=== PATIENT | female | born 1935 | race Caucasian/White ===

== ENCOUNTER → 2024-04-22 12:55 | Outpatient (CLI) | payer MEDICARE, SELFPAY ==
--- NOTE | 2024-04-22 | DI.MRI.S_ITS ---
PROCEDURE: MR LUMBAR SPINE WO CON INDICATIONS: LUMBAR STENOSIS TECHNIQUE: Noncontrast sagittal T1 spin echo and T2 fast echo, sagittal STIR, and T2 fast spin echo through the lumbar spine. In cases with scoliosis, additional coronal T2 fast spin echo may be performed. COMPARISON: Outside Facility, MR, MR LUMBAR SPINE WO CON, 12/08/2022, 8:47. FINDINGS: Image quality: Excellent. Alignment and Curvature: New L4-5 posterior fusion is present. Stable trace anterolisthesis of L2 on L3, L3 on L4. Bone Marrow: Marrow is of normal overall signal. Reactive endplate changes are most prominent at L2-3. No acute vertebral body compression fractures. Spinal Cord: Conus medullaris terminates at the L1 level. Visualized cord demonstrates normal signal and size. Paraspinous Soft Tissues: No paravertebral masses. Discs: Multilevel disc desiccation most severe at L2-3, L3-4. T12-L1: No disc bulge, spinal stenosis or foraminal narrowing. No interval change. L1-L2: No disc bulge, spinal stenosis or foraminal narrowing. No interval change. L2-L3: Mild disc bulge with moderate spinal stenosis. Moderate bilateral foraminal narrowing with facet and ligamentum flavum hypertrophy, slightly progressive. L3-L4: Mild disc bulge with severe spinal stenosis and canal compression, progressive compared to prior exam. Severe right and moderate left foraminal narrowing, progressive. Facet and ligamentum flavum hypertrophy are present. L4-L5: Posterior fusion changes. No spinal stenosis, improved compared to prior exam. Moderate right and minimal left foraminal narrowing improved compared to prior exam. L5-S1: Mild disc bulge with mild spinal stenosis. Mild bilateral foraminal narrowing with facet and ligamentum flavum hypertrophy. No interval change. IMPRESSION: L4-5 posterior fusion with improved appearance of previous spinal stenosis as well as foraminal narrowing. Mild progression of foraminal narrowing at multiple levels most notably at L3-4 as above. Dictated by: Tasha Roberts M.D. on 04/27/2024 at 17:28 Approved by: Tasha Roberts M.D. on 04/27/2024 at 17:32
== END ==
PROVIDERS: PCP Family Medicine; Referring Provider Orthopaedic Surgery Orthopaedic Surgery of the Spine; Visit Provider Orthopaedic Surgery Orthopaedic Surgery of the Spine
DX: M48.062 Spinal stenosis, lumbar region with neurogenic claudication (principal); M48.07 Spinal stenosis, lumbosacral region; M51.369 Other intervertebral disc degeneration, lumbar region without mention of lumbar back pain or lower extremity pain; M51.379 Other intervertebral disc degeneration, lumbosacral region without mention of lumbar back pain or lower extremity pain; M47.816 Spondylosis without myelopathy or radiculopathy, lumbar region; M47.817 Spondylosis without myelopathy or radiculopathy, lumbosacral region; Z98.1 Arthrodesis status
CPT/HCPCS: 72148

== ENCOUNTER → 2024-04-28 11:53 | Outpatient (CLI) | payer MEDICARE, SELFPAY ==
--- NOTE | 2024-04-28 11:58 | EKG_ITS ---
[place] [id number] [place] [id number] Test Date: 2024-04-28 Pat Name: Dara Lopez Department: [facility] Room: Gender: Female Configuration Management Administrator: JUAN C : 1935 Requested By: Order Number: [id number] Reading MD: Sincere Chávez MD Measurements Intervals [place] Rate: 85 P: 5 CO: 126 QRS: 15 QRSD: 80 T: 14 QT: 352 QTc: 418 Interpretive Statements Sinus rhythm with occasional premature ventricular complexes Electronically Signed On 04-28-2024 15:33:31 PDT by Sincere Chávez MD
[2024-04-28 12:30] LABS: Add Manual Diff / Slide Review NO; Basophils Absolute Auto 100 /uL (0-100); Eosinophils Absolute Auto 400 /uL (0-450); Eosinophils Percent Auto 4.9 % (2-4); Hematocrit 42.4 % (36-46); Hemoglobin 14.1 g/dL (12.0-16.0); Lymphocytes Absolute Auto 2100 /uL (1100-4500); Lymphocytes Percent Auto 25.8 % (25-40); Mean Corpuscular HGB Conc 33.2 % (30-36); Mean Corpuscular Hemoglobin 31.4 PG (26-34); Mean Corpuscular Volume 94.6 fL (80-100); Monocytes Absolute Auto 700 /uL (0-900); Monocytes Percent Auto 8.9 % (3-14); Neutrophils Absolute Auto 4900 /uL (1500-7000); Neutrophils Percent Auto 59.4 % (50-75); Platelet Count 349 X10^3/uL (150-400); Red Blood Cell Count 4.48 X10^6/uL (4.0-5.2); Red Cell Distribution Width 12.7 % (11.6-14.8); White Blood Cell Count 8.3 X10^3/uL (4.5-11.0)
[2024-04-28 12:52] LABS: BUN Creatinine Ratio 29.2 (6-22); Blood Urea Nitrogen 26 mg/dL (7-17); Calcium 10.2 mg/dL (8.4-10.2); Carbon Dioxide 26 mmol/L (22-32); Chloride 105 mmol/L (98-107); Estimated Glomerular Filt Rate > 60 mL/min (>60); Glucose 95 mg/dL (80-110); HEMOLYSIS < 15 (0-50); Potassium 4.7 mmol/L (3.4-5.1); Sodium 137 mmol/L (137-145)
== END ==
PROVIDERS: PCP Family Medicine; Referring Provider Orthopaedic Surgery Orthopaedic Surgery of the Spine; Visit Provider Orthopaedic Surgery Orthopaedic Surgery of the Spine
DX: Z01.818 Encounter for other preprocedural examination (principal); Z01.812 Encounter for preprocedural laboratory examination
CPT/HCPCS: 36415; 80048; 85025; 93005; 93010

== ENCOUNTER → 2024-04-30 11:13 | Outpatient (CLI) | payer MEDICARE, SELFPAY ==
--- NOTE | 2024-04-30 11:14 | DI.CT.S_ITS ---
PROCEDURE: CT LUMBAR SPINE WO CON INDICATIONS: SPINAL STENOSIS LUMBAR REGION TECHNIQUE: Noncontrast 3 mm thick sections acquired from the T12 level to the sacrum. Sagittal and coronal reformats were constructed. For radiation dose reduction, the following was used: automated exposure control. COMPARISON: [facility], CR, XR LUMBAR SPINE 2 OR 3 VIEWS, 04/21/2024, 10:02. [facility], MR, MR LUMBAR SPINE WO CON, 04/22/2024, 13:32. Outside Facility, MR, MR LUMBAR SPINE WO CON, 12/08/2022, 8:47. FINDINGS: Image quality: Excellent. Bones: 5 non rib-bearing lumbar vertebrae are present. There has been prior L4-L5 PLIF with intervertebral disc spacer placement, and without hardware complication. Diffuse osseous demineralization. The vertebral body heights are preserved. Hypertrophy of the L1-L3 spinous processes. Alignment: Levocurvature of the lumbar spine with the apex at L3. Grade 1 anterolisthesis of L2 on L3. Otherwise, the lumbar lordosis is preserved. Discs: Multilevel intervertebral disc height loss. Vacuum disc phenomenon at L3-L4. Disc height loss and endplate sclerosis with subchondral cyst formation at the L2-L3 level. Central canal: Although the epidural space is not well assessed on CT, there is at least moderate bony canal stenosis at L2-L3 and severe stenosis at L3-L4. Foramina: Mild left foraminal stenosis at the L2-L3 and L4-L5 levels. Moderate right foraminal stenosis at the L2-L3 and L4-L5 levels. Severe right foraminal stenosis at the L3-L4 level. Soft tissues: No retroperitoneal masses or hematomas. Visualized aorta is normal in caliber. Mild aortoiliac atherosclerosis. 1.7 centimeters simple cyst in the right hepatic lobe (4/1). Nonobstructive left calyceal nephrolithiasis, including a 0.5 centimeter calculus at the superior pole (4/21) and a 0.5 centimeter calculus at the inferior pole (4/36) IMPRESSION: 1. Status post L4-L5 PSIF with intervertebral disc spacer placement, without hardware complication. 2. Severe L3-L4 central canal stenosis. 3. Severe right L3-L4 foraminal stenosis. Dictated by: Gigi Jacques M.D. on 05/01/2024 at 9:32 Approved by: Gigi Jacques M.D. on 05/01/2024 at 9:53
== END ==
PROVIDERS: PCP Physician Assistant; Referring Provider Orthopaedic Surgery Orthopaedic Surgery of the Spine; Visit Provider Orthopaedic Surgery Orthopaedic Surgery of the Spine
DX: M48.062 Spinal stenosis, lumbar region with neurogenic claudication (principal); Z98.1 Arthrodesis status
CPT/HCPCS: 72131

== ENCOUNTER 2024-05-11 06:01 | Inpatient (IN) | payer MEDICARE, SELFPAY ==
[2024-05-05 12:41] VITALS: BMI 21.4
[2024-05-11] VITALS (15 sets, daily range): BP systolic 86–145; BP diastolic 58–86; PULSE 80–108; RESP 9–19; TEMP 36.4–36.8; O2SAT 94–99; BMI 21.4
[2024-05-11] MEDS: LACTATED RINGERS 1,000 ML 84 ML IV ×2 (07:01→09:55)
--- NOTE | 2024-05-11 07:41 | PM.PREOP ---
Pre-operative Note Interval Note History & Physical reviewed/Exam performed by Physician: Yes Changes to H&P: No
[2024-05-11] MEDS: CEFAZOLIN 2 GM/100 ML PREMIX 100 ML IV ×2 (08:15→17:22)
--- NOTE | 2024-05-11 08:25 | SUR.OPER ---
Prone on spine table, head in foam head support, padded chest and pelvic supports, gel pad at knees, lower legs supported by pillows; nipples, genitalia and toes free of pressure, arms secured on foam padded arm boards at <90 degrees abduction. Tape over blanket at thigh secured to table.
[2024-05-11] MEDS: BUPIVACAINE 0.25% (PF) 60 ML, EPINEPHrine 0.15 MG INJ (08:29)
[2024-05-11] MEDS: BUPIVACAINE LIPOSOME 266 MG/20 ML VIAL INJ (08:29)
--- NOTE | 2024-05-11 11:06 | DI.RAD.S_ITS ---
PROCEDURE: XR LUMBAR SPINE 2-3V INDICATIONS: L3-4 TLIF ROBOT TECHNIQUE: 3 intraoperative fluoroscopic views of the lumbar spine were acquired. COMPARISON: None. FINDINGS: Intraoperative fluoroscopic images of lower lumbar spine shows posterior fusion at L3-4 level with surgical hardware and intervertebral spacer placement. IMPRESSION: Fluoro guidance was provided intraoperatively for L3-4 TLIF performed by the ordering physician. Dictated by: Shun Hdz M.D. on 05/11/2024 at 11:20 Approved by: Shun Hdz M.D. on 05/11/2024 at 11:22
--- NOTE | 2024-05-11 11:12 | PM.OP.1 ---
Operative Date/Time/Diagnoses Date of procedure: 05/11/24 Time of procedure: 07:40 Pre-op diagnosis: 1. 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 L3-4 foraminal stenosis 3. History of L4-5 fusion with instrumentation Post-op diagnosis: same Procedure & Clinicians Procedure: 1. L3-4 posterolateral and posterior interbody fusion 2. L3-4 posterior interbody cage placement 3. L4-5 posterior non-segmental instrumentation removal 4. L4-5 revision laminectomy with exploration of fusion 5. L3-4 posterior non-segmental instrumentation with pedicle screw placement 6. L4-5 posterolatearl fusion 7. Olalla of bone marrow from iliac crest through a separate incision 8. Utilization of microsurgical technique and operating microscope 9. Utilization of robotic assisted navigation Same procedure as scheduled: Yes Indications: Patient has been having chronic back pain and worsening lumbar radiculopathy and symptoms of neurogenic claudication. Patient was found to have significant L3-4 spinal stenosis with history of L4-5 fusion correlating with her exam findings and symptoms. Patient failed multiple conservative management with worsening pain weakness and numbness in her lower extremity. Patient has been having difficulty performing activity of daily living. After discussing risks benefits of treatment options, patient elected proceed with surgery. Surgeon: Fidel Beckham Stud Driver: Nely Diez Operative Notes Closure Type: primary Specimen(s): none sent Prosthetic devices, grafts, tissues, transplants, or devices: Globus CREO MIS screws, Rise cage Applied: catheter Estimated Blood Loss (mL): 100 Blood products transfused: none Procedure in detail: Patient was seen in the preoperative area. Risks and benefits of the surgery was discussed with the patient. Informed consent was obtained from the patient and placed in the chart. Surgical site was marked. Patient was taken to the operative room. General anesthesia was administered. Prophylactic antibiotic was given to the patient less than 30 min before the incision was made. Patient was placed into a prone position on the Jayden table. Patient's back was then prepped and draped in the sterile fashion. Time-out was performed at this time. After patient was prepped and draped, patient's PSIS was palpated and marked bilaterally. Small 1 cm incision was made over the PSIS for placement of the reference probes. Two trocar was placed into the PSIS 1 on each side. The reference probe was attached to the trocar of the reference apparatus. At this time the C-arm imaging was used to confirm AP and lateral of L3, L4, L5 vertebrae and merged the C-arm imaging using the [employer] robotic navigation system with the CT of the lumbar spine. After successful merging was completed and confirmed, skin marker was used to vasile out the skin incision using the [employer] robotic arm. Bilateral incision was made at this time. Using patient's previous scar incision was made over the L3, L4, L5 interval on the right side. Fascia was incised in line with skin incision. Patient's previously placed hardware over the L4-5 level was identified by dissecting down to the level the hardware using a Bovie and a Conrad. The locking caps which was removed using hardware removal residential recycle driver. The locking robert was then removed from the tulips of the pedicle screws using a Deangelo. The pedicle screws were then removed using the screwdriver. Pre templated trajectory was used and guided using the [employer] robotic navigation system for left L3, L4 pedicle screws and right L3, L4 pedicle screws placement. This was done by using the robotic arm to guide the high-speed bur to make a cortical entry point. Next a drill was placed also using the robotic arm and guided using the navigation system drilling partially through bilateral L3, L4 pedicles. Next L3, L4 pedicle screws it was pre templated and measured was placed onto the power residential recycle driver and inserted into the pedicles bilaterally. After all 8 screws were placed C-arm imaging was taken of both AP and lateral to confirm the placement. Excellent placement of the screws were confirmed and a matched precisely with the pre planned screw placement using the navigation system. MARs retractor was inserted using [employer] guidence. Globus MARS retractors was placed inside the incision and docked onto the L3 lamina. Using microsurgical technique and operating microscope, a L3 laminectomy and L3-4 facetectomy was performed using a Kerrison rongeur. The laminectomy and facetectomy was performed in order to decompress patient's cauda equina as well as the nerve roots exiting at the L3-4 level. Patient was found have severe lateral recess and neural foramen stenosis which was fully decompressed after the laminectomy facetectomy. More than 75% of the facets were removed during the process of decompression rendering L3-4 level grossly unstable and required a fusion procedure at the same time. The disc space at L3-4 was identified, and a total diskectomy was performed at L3-4 level. The endplates were decorticated using a rasp and shaver. The total diskectomy and decortication was performed at L3-4 level in order to to accomplish a L3-4 fusion. The local bone from the laminectomy and facetectomy was saved for local bone grafting. After the total diskectomy and decortication was completed, Viacel bone graft material was combined with local bone that was harvested earlier. At this time, a separate skin is incision was made over the iliac crest. A Jamshidi needle was inserted into the iliac crest through a separate skin incision on the right. 5 cc of bone marrow aspiration was obtained through the separate skin incision using a Jamshidi needle from the iliac crest. The bone marrow aspiration was combined with local bone and the Viacel bone grafting material. The bone grafting material was placed into the L3-4 interbody space along with a expandable cage. The cages were expanded to its maximum height using the torque limiting screwdriver. The disc preparation as well as the cage insertion were also performed under navigation guidance. After the cage was placed, AP and lateral C-arm imaging was taken to confirm placement of the cage and excellent position was confirmed. The fusion mass on the right side of L4-5 was exposed by performing a right-sided hemilaminectomy at L4-5 level. The hemilaminectomy was performed using the Kerrison rongeur to undercut the lamina as well removing additional epidural scar tissue for purpose of decompressing the epidural space. Globus MARS retractor was inserted and docked onto the L3-4, L4-5 posterolateral gutter. Using the power drill, posterior-lateral decortication was performed at L3-4, L4-5 level until bleeding cortical bone was identified. The remaining bone grafting material was placed into the L3-4, L4-5 posterior lateral gutter he order to accomplish posterolateral fusion at the L3-4, L4-5 level. At this time the tulips were attached to the L3, L4 pedicle screw shanks. This was done in L3, L4 pedicles bilaterally. After measuring the length of the rods, they were inserted into the tulips of the pedicle screws and locked in place using locking caps and torque limiting screwdriver bilaterally. Total 4 caps and 2 titanium rods was used in order to complete the posterior instrumentation construct. After all the hardware was placed, and confirmed with AP and lateral C-arm imaging, the wound was then irrigated with sterile normal saline and packed with Ray-Jose gauze for 3 min to accomplish hemostasis. After the gauze was removed the deep fascia was closed with #1 Vicryl suture. The subcutaneous layer was closed with 2-0 Vicryl. The skin was closed with skin pascual. Patient tolerated the procedure well. There were no complications. Neuro monitoring system was used to monitor patient's neurologic status throughout entire procedure. There was no disturbance of the neural monitoring signals throughout the case. The Operation could not have been safely performed without compromising the technical result or length of the procedure, without the assistance of a skilled insurance legal assistant. The insurance legal assistant was medically necessary for proper positioning, retraction and manipulation of instruments, proper exposure, surgical preparation, and manipulation of tissue. Complications: none Post-operative Condition: stable Disposition: PACU Plan for aftercare: Admit to inpatient hospital
[2024-05-11] MEDS: OXYCODONE IR 5 MG TABLET PO ×3 (12:06→21:03)
[2024-05-11] MEDS: LACTATED RINGERS 1,000 ML 125 ML IV (14:27)
--- NOTE | 2024-05-11 14:38 | OT.IP.EVAL ---
Current Diagnoses Spinal stenosis, lumbar region with neurogenic claudication (05/11/24) Arthrodesis status (05/11/24) Surgery Performed Operation Date: 05/11/24 07:45 Actual Procedures p L3-4 TLIF with L3-5 PSF with instrumentation-Robot - Fidel Beckham MD Past Medical History (Last Updated 05/05/24 @ 12:40 by Cailin Rinaldi, RN) Arthritis Cataract Cervical spondylosis Depression Facet arthropathy, cervical GERD (gastroesophageal reflux disease) HLD (hyperlipidemia) Osteoporosis Spinal stenosis Surgical History (Last Updated 05/05/24 @ 13:28 by Cailin Rinaldi, RN) H/O mastectomy H/O: hysterectomy History of appendectomy History of Josephine fundoplication S/P lumbar fusion (01/2023) Occupational Therapy Inpatient Evaluation/Re-Eval M1 PT/OT-IP Prior Functional Status Start: 05/11/24 14:07 Freq: NEEDED Status: Active Protocol: Document 05/11/24 14:56 CGR (Rec: 05/11/24 15:06 CGR [id number]) Medical Review Prior Functional Status Medical History Reviewed Yes Diet/Fluid Consistency Regular Communication WNLs, [place] and has hearing aides Mobility and Gait I without AD, flexed posture per Activities of Daily Living and IADL's IND with bathing, dressing, driving. Social History Household Members spouse Living Arrangements House Number of Floors (Floors) One Floor Number of Stairs To Enter/Railing? 3 stairs with railing to enter . Railings on both sides and can reach one railing at a time. Home Environment High Toilet,Walk in Shower, Built-In Shower Seat Home Equipment Front Wheel Walker,Straight Cane,Cable Wirer Employment Status Retired Additional Social History Comment Flat bed and no rails and gets out to her left M2 OT-IP Current Condition Start: 05/11/24 14:56 Freq: Status: Active Protocol: Document 05/11/24 14:56 CGR (Rec: 05/11/24 15:06 CGR [id number]) Occupational Therapy Current Condition Current Condition Evaluation Date 05/11/24 Treatment Diagnosis L3-4 and L4-5 TLIF Diagnosis Onset Date 05/11/24 Post Operative Precautions Lumbar Precautions Log Roll,No Twisting,Limit Bending,Lifting Restriction of 10 lbs,Gait Belt above Incisional Area M3 OT- IP Subjective and Pain Start: 05/11/24 14:56 Freq: Status: Active Protocol: Document 05/11/24 14:56 CGR (Rec: 05/11/24 15:06 CGR [id number]) OT- Subjective Occupational Therapy Visit Type Type Initial Evaluation Visit Start Time 14:15 Visit Stop Time 14:38 Notes Partial co-treat with P.T. present throughout OT Pain Assessment Pain When Pain Assessed At Rest Pain Present Pain Present Pain Reported Location back Intensity 3 Scale Used Numeric (0 - 10) Management Techniques Apply Cold,Distraction, Modification of Treatment,Re- positioning M4 OT- IP ADL's Start: 05/11/24 14:56 Freq: Status: Active Protocol: Document 05/11/24 14:56 CGR (Rec: 05/11/24 15:06 CGR [id number]) OT [id number] Comments OT Self-Feeding Comments Not meal time OT ADL-Grooming Comments OT Grooming Comments Pt declined to perform OT ADL-Oral Care Comments Oral Care Comments Pt declined to perform OT ADL-Dressing General Eval Lower Body Dressing Ability Total Assistance Areas Needing Assistance Socks Comments OT Dressing Comments Discussed need for LB dressing equipment. Pt states that she knows how to use the healthcare administrator for LB dressing but not the sock aid OT ADL-Toileting General Evaluation Toileting Ability Total Assistance Comments OT Toileting Comments [place] OT ADL-Bathing Comments OT Bathing Comments not appropriate at this time M5 OT- IP IADL's Start: 05/11/24 14:56 Freq: Status: Active Protocol: Document 05/11/24 14:56 CGR (Rec: 05/11/24 15:06 CGR [id number]) OT-Instrumental Activities of Daily Living Deficits IADL Deficits Identified No Deficits Home Safety Awareness Awareness of Need for Assistance at Home Good Awareness Ability to Problem Solve Emergency Able to Problem Solve Situations Medication Management Medication Management No Deficits Identified Money Management Money Management No Deficits Identified Meal Preparation Meal Preparation No Deficits Identified K9 Handler K9 Handler No Deficits Identified Driving Driving Comments Pt's spouse can drive for her 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 M6 OT- IP Functional Cognition Start: 05/11/24 14:56 Freq: Status: Active Protocol: Document 05/11/24 14:56 CGR (Rec: 05/11/24 15:06 CGR [id number]) Cognitive Factors Limiting Selfcare Function Cognitive Ability Level of Alertness Alert Patient Orientation Name,Age,Birthday,Month,Date, Year,Day of Week,Place, Situation Attention Span Ability Capable of Focused Attention, Capable of Sustained Attention Ability to Follow Commands Able to Follow One Step Commands with Increased Time, Able to Follow One Step Commands with Repetition Cognitive Comments Cognitive Assessment Comments Pt states she is feeling a little fuzzy after the surgey . OT- Vision and Hearing OT- Hearing Assessment OT- Hearing Assessment Hearing Impaired,Use of Hearing Aids OT- Vision Assessment Visual Acuity Glasses All The Time Visual Attentiveness WFL Occular Pursuits WFL Visual Convergence WFL Vision Assessment Comments hx of cateract sx M7 OT- IP Mobility and Balance Start: 05/11/24 14:56 Freq: Status: Active Protocol: Document 05/11/24 14:56 CGR (Rec: 05/11/24 15:06 CGR [id number]) OT- Bed Mobility Assessment Rolling Type of Rolling Log Rolling,Roll to Right Level of Assistance Minimal Assistance Supine to Sit Supine to Sit Assist Minimal Assistance Sit to Supine Sit to Supine Assist Minimal Assistance Scooting Scooting to Edge of Bed Minimal Assistance OT-Transfer Assessment Sit to and From Stand Sit to and from Stand Minimal Assistance Transfers Transfer Ability Minimal Assistance Technique Transfer Destination Bed,Chair Transfer Technique Stand Step Pivot Devices Transfer Assistive Devices Gait Belt,Front Wheeled Walker Comments Mobility Comments Mobility over to the door with min a. OT- Balance Assessment Sitting Balance and Reactions Static Sitting Balance Ability Normal Dynamic Sitting Balance Ability Normal M8 OT- IP Objective Assessments Start: 05/11/24 14:56 Freq: Status: Active Protocol: Document 05/11/24 14:56 CGR (Rec: 05/11/24 15:06 CGR [id number]) OT Gross Range of Motion Upper Extremity Range of Motion Assessment Within Functional Limits OT Strength Upper Extremity Strength Assessment Within Functional Limits Comments Strength Comments arms and hands 4/5 OT- Coordination Assessment Upper Extremity Finger to Nose Test Within Functional Limits Finger Tapping Test Within Functional Limits OT-Muscle Tone Assessment Muscle Tone WNL Yes OT Sensation Assessment Edema Edema Absent M9 OT- IP Assessment and Plan Start: 05/11/24 14:56 Freq: Status: Active Protocol: Document 05/11/24 14:56 CGR (Rec: 05/11/24 15:06 CGR [id number]) OT Summary Assessment and Plan Potential Rehabilitation Potential Excellent Analytic Complexity at Evaluation Moderate Summary OT Impairments Pain,Balance,Functional Cognition,Functional Mobility, Grooming,Dressing,Toileting, Bathing,Toilet Transfers, Shower Transfers,Activity Tolerance Progress Towards Goals Progressing Toward Goals Assessment Summary Pt presents as a moderate complexity evaluation s/p admit for L3-4 and L4-5 TLIF. Pt is doing very well after sx and was able to mobilize with min a. Limited teaching on this date d/t pt feeling a little off cognitively. Pt will benefit from 1-2 OT session and is most appropriate for discharge home with husbands assist. Goals Grooming Goal Independent Dressing Goal Independent,Cable Wirer,Sock Aid Toileting Goal Independent Bathing Goal Independent Toilet Transfer Goal Independent Shower Transfer Goal Independent Patient/Caregiver Education Goal Demonstrate Post-Op Precautions Days to Meet Goals 2 Frequency of Treatment Other frequency 5x a week Treatment Plan OT Treatment Plan ADL Training,Functional Mobility,Patient/Family Education,Discharge Planning Other Treatment Recommendations and Next LB dressing training, pain Treatment Focus management, energy conservation, review back precautions. Discharge Recommendations OT Discharge Recommendations Home with Assistance Home Equipment Needs sock aid Transportation Needs at Discharge Private Vehicle
--- NOTE | 2024-05-11 14:43 | PT.IIE ---
Current Diagnoses Spinal stenosis, lumbar region with neurogenic claudication (05/11/24) Arthrodesis status (05/11/24) Surgery Performed Operation Date: 05/11/24 07:45 Actual Procedures p L3-4 TLIF with L3-5 PSF with instrumentation-Robot - Fidel Beckham MD Surgical History (Last Updated 05/05/24 @ 13:28 by Cailin Rinaldi, RN) H/O mastectomy H/O: hysterectomy History of appendectomy History of Josephine fundoplication S/P lumbar fusion (01/2023) Medical History (Last Updated 05/05/24 @ 12:40 by Cailin Rinaldi, RN) Arthritis Cataract Cervical spondylosis Depression Facet arthropathy, cervical GERD (gastroesophageal reflux disease) HLD (hyperlipidemia) Osteoporosis Spinal stenosis Physical Therapy Inpatient Evaluation/Re-Eval M1 PT/OT-IP Prior Functional Status Start: 05/11/24 14:07 Freq: NEEDED Status: Active Protocol: Document 05/11/24 14:07 MB (Rec: 05/11/24 14:43 MB [id number]) Medical Review Prior Functional Status Medical History Reviewed Yes Diet/Fluid Consistency Regular Communication WNLs, CHEESH-NA and has hearing aides Mobility and Gait I without AD, flexed posture per Activities of Daily Living and IADL's I bathing, dressing, driving Social History Household Members spouse Living Arrangements House Number of Floors (Floors) One Floor Number of Stairs To Enter/Railing? 3 stairs with railing to enter . Railings on both sides and can reach one railing at a time. Home Environment High Toilet,Walk in Shower, Built-In Shower Seat Home Equipment Front Wheel Walker,Straight Cane,Digital Camera Technician Employment Status Retired Additional Social History Comment Flat bed and no rails and gets out to her left M2 PT-IP Current Condition Start: 05/11/24 14:07 Freq: NEEDED Status: Active Protocol: Document 05/11/24 14:07 MB (Rec: 05/11/24 14:43 MB [id number]) Physical Therapy Current Condition Current Condition Evaluation Date 05/11/24 Treatment Diagnosis L3-5 fusion with removal of some previous hardware M3 PT-IP Subjective Start: 05/11/24 14:07 Freq: NEEDED Status: Active Protocol: Document 05/11/24 14:07 MB (Rec: 05/11/24 14:43 MB [id number]) Subjective Physical Therapy Visit Type Type Initial Evaluation Visit Start Time 14:07 Visit Stop Time 14:30 Number of CIGAR BRANDER Visits 0 Physical Therapy Visit Comments Patient Comments Pt is agreeable to PT Therapy Pain Assessment Pain When Pain Assessed At Rest Pain Present Pain Present Pain Reported Location back Intensity 3 Scale Used Numeric (0 - 10) M4 PT-IP Mobility and Gait Start: 05/11/24 14:07 Freq: NEEDED Status: Active Protocol: Document 05/11/24 14:07 MB (Rec: 05/11/24 14:43 MB [id number]) PT-Bed Mobility Assessment Rolling Type of Rolling Log Rolling,Roll to Right Level of Assist Minimal Assistance Supine to Sit Supine to Sit Minimal Assistance,1 Person Assistance,Bedrails Scooting Scooting to Edge of Bed Minimal Assistance Scooting Up and Down in Bed Minimal Assistance PT-Transfer Assessment Sit to and From Stand Sit to and from Stand Minimal Assistance,1 Person Assistance,Use of Upper Extremities Equipment Transfer Assistive Device Gait Belt,Front Wheeled Walker Orthotic/Prosthetic Devices or Brace: No Transfers Transfer Destination Chair Transfer Technique Stepping Transfer Ability Level of Assist Minimal Assistance,1 Person Assistance,Use of Upper Extremities Comments Mobility Comments Pt is barely min A for all activity but not quite CGA. Orthostatics are negative with BP and HR in RUE: supine 116/ 65, 103; standing 133/73, 108; standing after short gait to chair 132/71, 108 and pt is not light-headed. Slow and careful mobility today. Gait Assessment Gait Gait Assistance Required: Minimum Assistance,1 Person Assist Distance (Feet) 3 Able to Maintain Weight Bearing Status Yes During Gait Assistive Devices Assistive Device Gait Belt,Front Wheeled Walker Orthotic/Prosthetic Devices or Brace: No Gait Deviations General Gait Pattern Antalgic,Decreased Stride Length,Decreased Feet Clearance,Flexed Trunk,Step-to Gait Factors Limiting Gait Function Factors Limiting Gait Function Decreased Activity Tolerance, Difficulty Following Directions,Incoordination,Pain ,Poor Balance,Poor Safety Awareness PT-Balance Assessment Sitting Balance and Reactions Static Sitting Balance Ability Good Dynamic Sitting Balance Ability Good Standing Balance and Reactions Static Standing Balance Ability Good Dynamic Standing Balance Ability Fair Device Used RW M5 PT-IP Objective Assessments Start: 05/11/24 14:07 Freq: NEEDED Status: Active Protocol: Document 05/11/24 14:07 MB (Rec: 05/11/24 14:43 MB [id number]) Orientation Orientation/Cognition Level of Alertness Alert Orientation Name,Age,Birthday,Month,Date, Year,Day of Week,Place, Situation Language Function Ability Hard of Hearing Safety Awareness Decreased Safety Awareness Memory Description No Deficits Noted Gross Range of Motion Upper Extremity ROM Impairments Defer to OT Lower Extremity ROM Assessment Within Functional Limits Impairments Pt does not follow ROM and MMT cues well today and partially d/t hearing and some lethargy Strength Comments Strength Comments MMT deferred this date d/t above Coordination Assessment Gross Coordination Gross Coordination Impaired Sensation Assessment Comments Sensation Comments Pt denies paresthesias today but c/o sacral area pain with standing Muscle Tone Muscle Tone WNL Yes M6 PT-IP Treatment Start: 05/11/24 14:07 Freq: NEEDED Status: Active Protocol: Document 05/11/24 14:07 MB (Rec: 05/11/24 14:43 MB [id number]) Physical Therapy Treatment Education Education Provided Precautions,Post-Op Packet, Safety M7 PT-IP Assessment and Plan Start: 05/11/24 14:07 Freq: NEEDED Status: Active Protocol: Document 05/11/24 14:07 MB (Rec: 05/11/24 14:43 MB [id number]) PT Summary Assessment and Plan Potential Rehabilitation Potential Good Status of Condition at Evaluation Evolving Summary Impairments Pain,ROM,Strength,Balance, Coordination,Bed Mobility, Transfers,Gait,Activity Tolerance Progress Towards Goals Progressing Toward Goals Assessment Summary Pt is a pleasant 88 y/o female presenting with some pain same day post-op lumbar fusion with some previous hardware removal. She is not orthostatic and she is barely min A for mobility but more than CGA first time OOB to chair. She recalls 1/3 back precautions and log rolling from previous spinal surgery and re-ed on back precautions today. Progress gait and stair training next date. Goals Bed Mobility Goal Independent Transfer Goal Independent,Front Wheeled Walker Gait Goal Independent,Front Wheel Walker Gait Distance 100 Other Goals Pt will ascend and descend 3 steps with rail and no more than CGA to allow safe home entry. Days to Meet Goals 5 Frequency of Treatment Frequency Of Treatment Twice a Day Treatment Plan Physical Therapy Treatment Plan Bed Mobility Training,Transfer Training,Gait Training, Therapeutic Exercise,Balance Retraining,Post Op Education, Discharge Planning,Hot or Cold Pack,Neuromuscular Re-ed, Coordination Retraining,Manual Therapy Precautions Lumbar Precautions Log Roll,No Twisting,Limit Bending,Lifting Restriction of 10 lbs,Gait Belt above Incisional Area Other Precautions Reviewed log rolling technique Recommendations To Nursing Amount of Assist Needed 1 Person Assist Discharge Recommendations PT Discharge Recommendations Home with Assistance Transportation Needs at Discharge Private Vehicle
[2024-05-11] MEDS: ACETAMINOPHEN 325 MG TABLET 650 MG PO ×2 (15:17→21:03)
[2024-05-11] MEDS: SENNOSIDES 8.6 MG TABLET 17.2 MG PO (21:02)
[2024-05-11] MEDS: DOCUSATE 100 MG CAPSULE PO (21:02)
[2024-05-11] MEDS: ATORVASTATIN 20 MG TABLET 40 MG PO (21:02)
[2024-05-11] MEDS: PANTOPRAZOLE DR 40 MG TABLET PO (21:02)
[2024-05-11] MEDS: cloNIDine 0.1 MG TABLET PO (21:05)
[2024-05-12] MEDS: CEFAZOLIN 2 GM/100 ML PREMIX 100 ML IV (00:02)
[2024-05-12] MEDS: OXYCODONE IR 10 MG TABLET PO ×4 (04:33→18:18)
[2024-05-12] MEDS: ACETAMINOPHEN 325 MG TABLET 650 MG PO (04:33)
[2024-05-12 04:37] VITALS: BP 114/67; PULSE 90; RESP 20; TEMP 36.4; O2SAT 94
[2024-05-12] MEDS: SODIUM CHLORIDE 0.9% FLUSH 10 ML IV ×3 (04:53→20:26)
[2024-05-12 05:31] LABS: Hematocrit 32.8 % (36-46); Hemoglobin 10.8 g/dL (12.0-16.0)
--- NOTE | 2024-05-12 07:44 | PM.PNPO.1 ---
Subjective Subjective Date Patient Seen: 05/12/24 Time Patient Seen: 07:44 Interval history: Patient states pain is controlled with oral pain relievers. She has been able to work with physical therapy yesterday. No new numbness or tingling lower extremities. No episodes of nausea vomiting fever or chills. Exam Vital Signs (past 8 hours): - 05/12/24 04:37 Temperature 97.6 F Pulse Rate 90 Respiratory Rate 20 Blood Pressure 114/67 Pulse Oximetry 94 Oxygen Delivery Method Room Air Oxygen Flow Rate 0 Narrative Exam Narrative: 5/5 PF, DF, EHL on bilateral lower extremities. Sensation to light touch intact throughout BLE, calves soft and compressible. Dressing clean dry and intact. SCDs on and functioning. Urinary De Leon in place Resp Effort & Inspection: normal respiratory effort and able to speak in complete sentences Objective Labs 05/12/24 05:15 Labs: Laboratory Results - last 24 hr 05/12/24 05:15 Hgb 10.8 L Hct 32.8 L PFSH Medical History (Updated 05/05/24 @ 12:40 by Cailin Rinaldi RN) Cataract Spinal stenosis GERD (gastroesophageal reflux disease) Osteoporosis HLD (hyperlipidemia) Depression Arthritis Cervical spondylosis Facet arthropathy, cervical Surgical History (Updated 05/05/24 @ 13:28 by Cailin Rinaldi RN) History of Josephine fundoplication H/O mastectomy H/O: hysterectomy History of appendectomy S/P lumbar fusion (01/2023) Social History household members: spouse Smoking Status: Never smoker alcohol intake: current Assessment & Plan Post-op Postoperative Procedures: Procedures Operation Date: 05/11/24 07:45 Actual Procedure Side Surgeon p L3-4 TLIF with L3-5 PSF with instrumentation-Robot Fidel Beckham MD Postoperative day: 1 Postoperative status: doing well Postoperative plan: routine post-op care and ambulate Postoperative plan narrative: Patient is progressing well status post TLIF. Discontinue De Leon. Ambulate with physical therapy. If she progresses well re-evaluate in the afternoon for possible discharge. Multimodal pain control. SCDs on when in bed for DVT prevention. Plan to discharge later today or tomorrow pending PT. Quality VTE Deep Vein Thrombosis/Pulmonary Embolism Present on Admission: No
[2024-05-12] MEDS: DOCUSATE 100 MG CAPSULE PO ×2 (08:17→20:26)
[2024-05-12] MEDS: buPROPion XL 150 MG TAB PO (08:17)
[2024-05-12] MEDS: MULTIVITAMIN 1 TABLET 1 TAB PO (08:17)
[2024-05-12] MEDS: CHOLECALCIFEROL (VITAMIN D3) 5,000 UNIT TABLET 5000 UNIT PO (08:17)
[2024-05-12] MEDS: PANTOPRAZOLE DR 40 MG TABLET PO ×2 (08:17→20:25)
[2024-05-12] MEDS: CITALOPRAM 10 MG TABLET 60 MG PO (08:17)
[2024-05-12] MEDS: polyethylene glycoL 3350 17 GM POWD.PACK PO (08:17)
[2024-05-12 08:34] VITALS: BP 113/71; PULSE 67; RESP 16; TEMP 36.8; O2SAT 96
--- NOTE | 2024-05-12 09:00 | PT.IPTN ---
Current Diagnoses Spinal stenosis, lumbar region with neurogenic claudication (05/11/24) Arthrodesis status (05/11/24) Surgery Performed Operation Date: 05/11/24 07:45 Actual Procedures p L3-4 TLIF with L3-5 PSF with instrumentation-Robot - Fidel Beckham MD Physical Therapy Treatment Note M2 PT-IP Current Condition Start: 05/11/24 14:07 Freq: NEEDED Status: Active Protocol: Document 05/11/24 14:07 MB (Rec: 05/11/24 14:43 MB [id number]) Physical Therapy Current Condition Current Condition Evaluation Date 05/11/24 Treatment Diagnosis L3-5 fusion with removal of some previous hardware M3 PT-IP Subjective Start: 05/11/24 14:07 Freq: NEEDED Status: Active Protocol: Document 05/12/24 09:30 TS (Rec: 05/12/24 09:42 TS [id number]) Subjective Physical Therapy Visit Type Type Treatment Note Visit Start Time 09:00 Visit Stop Time 09:28 Number of SLITTING MACHINE OPERATOR Visits 1 Physical Therapy Visit Comments Patient Comments Pt found resting in bed, reports pain is 9/10 with mobility, little amounts of pain at rest. She is agreeable to PT. Therapy Pain Assessment Pain When Pain Assessed During Mobility Pain Present Pain Present Pain Reported Location back Intensity 9 Scale Used Numeric (0 - 10) M4 PT-IP Mobility and Gait Start: 05/11/24 14:07 Freq: NEEDED Status: Active Protocol: Document 05/12/24 09:30 TS (Rec: 05/12/24 09:42 TS [id number]) PT-Bed Mobility Assessment Rolling Type of Rolling Log Rolling,Roll to Right Level of Assist Standby Assistance Supine to Sit Supine to Sit Standby Assistance,Bedrails Scooting Scooting to Edge of Bed Standby Assistance PT-Transfer Assessment Sit to and From Stand Sit to and from Stand Contact Guard Assistance, Minimal Assistance Equipment Transfer Assistive Device Gait Belt,Front Wheeled Walker Orthotic/Prosthetic Devices or Brace: No Comments Mobility Comments Pt recalls 3/3 spinal precautions prior to mobility. Logroll to R side SBA, pt demonstrates carryover. Supine to sit SBA with BUE support. STS with FWW from bed CGA. She ambulates ~20' in the room SBA/CGA, denies any lightheadedness. pt sat in chair for break, agrees to perform stairs. STS from the chair Beatriz/CGA with use of FWW . She ambulates ~80'SBA with FWW to stairs. She performs stairs x3 with single rail and DOOR PULLER CGA with cues for sequencing. Pt ambulates back to the room, was left in the chair, all needs met. Gait Assessment Gait Gait Assistance Required: Standby Assistance,Contact Guard Assist,1 Person Assist Distance (Feet) 100 Assistive Devices Assistive Device Gait Belt,Front Wheeled Walker Orthotic/Prosthetic Devices or Brace: No Gait Deviations General Gait Pattern Antalgic,Decreased Stride Length,Decreased Feet Clearance,Flexed Trunk,Step-to Gait Factors Limiting Gait Function Factors Limiting Gait Function Decreased Activity Tolerance, Difficulty Following Directions,Incoordination,Pain ,Poor Balance,Poor Safety Awareness Stair Climbing Assessment Evaluation Level of Assist On Stairs Contact Guard Assistance,1 Person Assistance Devices Stair Climbing Assistive Devices Left Railing Technique/Endurance Stair Climbing Direction Ascend and Descend Stair Climbing Technique Step to Step Number of Steps Climbed 3 PT-Balance Assessment Sitting Balance and Reactions Static Sitting Balance Ability Good Dynamic Sitting Balance Ability Good Standing Balance and Reactions Static Standing Balance Ability Good Dynamic Standing Balance Ability Fair Device Used FWW M5 PT-IP Objective Assessments Start: 05/11/24 14:07 Freq: NEEDED Status: Active Protocol: Document 05/11/24 14:07 MB (Rec: 05/11/24 14:43 MB [id number]) Orientation Orientation/Cognition Level of Alertness Alert Orientation Name,Age,Birthday,Month,Date, Year,Day of Week,Place, Situation Language Function Ability Hard of Hearing Safety Awareness Decreased Safety Awareness Memory Description No Deficits Noted Gross Range of Motion Upper Extremity ROM Impairments Defer to OT Lower Extremity ROM Assessment Within Functional Limits Impairments Pt does not follow ROM and MMT cues well today and partially d/t hearing and some lethargy Strength Comments Strength Comments MMT deferred this date d/t above Coordination Assessment Gross Coordination Gross Coordination Impaired Sensation Assessment Comments Sensation Comments Pt denies paresthesias today but c/o sacral area pain with standing Muscle Tone Muscle Tone WNL Yes M6 PT-IP Treatment Start: 05/11/24 14:07 Freq: NEEDED Status: Active Protocol: Document 05/12/24 09:30 TS (Rec: 05/12/24 09:42 TS [id number]) Physical Therapy Treatment Education Education Provided Precautions,Post-Op Packet, Safety M7 PT-IP Assessment and Plan Start: 05/11/24 14:07 Freq: NEEDED Status: Active Protocol: Document 05/12/24 09:30 TS (Rec: 05/12/24 09:42 TS [id number]) PT Summary Assessment and Plan Potential Rehabilitation Potential Good Summary Impairments Pain,ROM,Strength,Balance, Coordination,Bed Mobility, Transfers,Gait,Activity Tolerance Progress Towards Goals Progressing Toward Goals Assessment Summary Dara is doing well with her mobility. She is SBA for all bed mobility and demonstrates good carryover of sequencing. She progressed her gait to ~ 100 SBA/CGA with FWW. She performed stairs x3 with single rail and DOOR PULLER. PT is recommending pt return home with assist. Goals Bed Mobility Goal Independent Transfer Goal Independent,Front Wheeled Walker Gait Goal Independent,Front Wheel Walker Gait Distance 100 Other Goals Pt will ascend and descend 3 steps with rail and no more than CGA to allow safe home entry. Days to Meet Goals 5 Frequency of Treatment Frequency Of Treatment Twice a Day Treatment Plan Physical Therapy Treatment Plan Bed Mobility Training,Transfer Training,Gait Training, Therapeutic Exercise,Balance Retraining,Post Op Education, Discharge Planning,Hot or Cold Pack,Neuromuscular Re-ed, Coordination Retraining,Manual Therapy Precautions Lumbar Precautions Log Roll,No Twisting,Limit Bending,Lifting Restriction of 10 lbs,Gait Belt above Incisional Area Other Precautions Reviewed log rolling technique Recommendations To Nursing Amount of Assist Needed 1 Person Assist Discharge Recommendations PT Discharge Recommendations Home with Assistance Transportation Needs at Discharge Private Vehicle
--- NOTE | 2024-05-12 10:48 | OT.IP.TRT ---
Current Diagnoses Spinal stenosis, lumbar region with neurogenic claudication (05/11/24) Arthrodesis status (05/11/24) Surgery Performed Operation Date: 05/11/24 07:45 Actual Procedures p L3-4 TLIF with L3-5 PSF with instrumentation-Robot - Fidel Beckham MD Occupational Therapy Treatment Note M2 OT-IP Current Condition Start: 05/11/24 14:56 Freq: Status: Active Protocol: Document 05/11/24 14:56 CGR (Rec: 05/11/24 15:06 CGR [id number]) Occupational Therapy Current Condition Current Condition Evaluation Date 05/11/24 Treatment Diagnosis L3-4 and L4-5 TLIF Diagnosis Onset Date 05/11/24 Post Operative Precautions Lumbar Precautions Log Roll,No Twisting,Limit Bending,Lifting Restriction of 10 lbs,Gait Belt above Incisional Area M3 OT- IP Subjective and Pain Start: 05/11/24 14:56 Freq: Status: Active Protocol: Document 05/12/24 11:17 [facility] (Rec: 05/12/24 11:25 [facility] [id number]) OT- Subjective Occupational Therapy Visit Type Type Treatment Note Visit Start Time 10:20 Visit Stop Time 10:48 Occupational Therapy Visit Comments Patient Comments Pt not having to use the bathroom but agreed to practice LB dressing needs. Patient/Caregiver Goals TO go home. OT Pain Assessment Pain When Pain Assessed During Mobility Pain Present Pain Present Pain Reported Location back Intensity 10 Scale Used Numeric (0 - 10) M4 OT- IP ADL's Start: 05/11/24 14:56 Freq: Status: Active Protocol: Document 05/12/24 11:17 [facility] (Rec: 05/12/24 11:25 [facility] [id number]) OT [id number] Comments OT Self-Feeding Comments Not meal time OT ADL-Grooming General Evaluation Grooming Ability Standby Assistance Areas Needing Assistance Retrieving/Set-up of Grooming Items OT ADL-Oral Care General Eval Oral Care Ability Standby Assistance Areas of Assistance Retrieving/Set-Up of Items Comments Oral Care Comments Pt educated to spit into a cup or hinge at her hips to best be able to follow her back precautions. OT ADL-Dressing Comments OT Dressing Comments Able to practice use of activities attendant and sock aid. Pt plans on getting a sock aid, longe handled shoe horn and brush OT ADL-Toileting Comments OT Toileting Comments Pt will benefit from a BSC at home. Spoke of use of wet ones and pads/brief at night. OT ADL-Bathing Comments OT Bathing Comments Pt states not wanting to try today due to her increased pain. M5 OT- IP IADL's Start: 05/11/24 14:56 Freq: Status: Active Protocol: Document 05/11/24 14:56 CGR (Rec: 05/11/24 15:06 CGR [id number]) OT-Instrumental Activities of Daily Living Deficits IADL Deficits Identified No Deficits Home Safety Awareness Awareness of Need for Assistance at Home Good Awareness Ability to Problem Solve Emergency Able to Problem Solve Situations Medication Management Medication Management No Deficits Identified Money Management Money Management No Deficits Identified Meal Preparation Meal Preparation No Deficits Identified Final Block Press Operator Final Block Press Operator No Deficits Identified Driving Driving Comments Pt's spouse can drive for her 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 M6 OT- IP Functional Cognition Start: 05/11/24 14:56 Freq: Status: Active Protocol: Document 05/12/24 11:17 [facility] (Rec: 05/12/24 11:25 [facility] [id number]) Cognitive Factors Limiting Selfcare Function Cognitive Comments Cognitive Assessment Comments Pt able to follow commands well. M7 OT- IP Mobility and Balance Start: 05/11/24 14:56 Freq: Status: Active Protocol: Document 05/12/24 11:17 [facility] (Rec: 05/12/24 11:25 [facility] [id number]) OT-Transfer Assessment Sit to and From Stand Sit to and from Stand Minimal Assistance,Moderate Assistance Transfers Transfer Ability Contact Guard Assistance Technique Transfer Destination Chair Transfer Technique Stand Step Pivot Devices Transfer Assistive Devices Gait Belt,Front Wheeled Walker Comments Mobility Comments JUAN/MODA to stand as and needing cues to activated her legs to stand as pt tends to buckle due to her pain. Once on her feet CGA with FWW. Pt very heavy use of her hands on the FWW to move. Pt states to sleep on another bed at home as her current bed is very high. OT- Balance Assessment Sitting Balance and Reactions Static Sitting Balance Ability Normal Dynamic Sitting Balance Ability Good Standing Balance and Reactions Static Standing Balance Ability Fair Dynamic Standing Balance Ability Fair M8 OT- IP Objective Assessments Start: 05/11/24 14:56 Freq: Status: Active Protocol: Document 05/11/24 14:56 CGR (Rec: 05/11/24 15:06 CGR [id number]) OT Gross Range of Motion Upper Extremity Range of Motion Assessment Within Functional Limits OT Strength Upper Extremity Strength Assessment Within Functional Limits Comments Strength Comments arms and hands 4/5 OT- Coordination Assessment Upper Extremity Finger to Nose Test Within Functional Limits Finger Tapping Test Within Functional Limits OT-Muscle Tone Assessment Muscle Tone WNL Yes OT Sensation Assessment Edema Edema Absent M9 OT- IP Assessment and Plan Start: 05/11/24 14:56 Freq: Status: Active Protocol: Document 05/12/24 11:17 [facility] (Rec: 05/12/24 11:25 [facility] [id number]) OT Summary Assessment and Plan Potential Rehabilitation Potential Excellent Analytic Complexity at Evaluation Moderate Summary OT Impairments Pain,Balance,Functional Cognition,Functional Mobility, Grooming,Dressing,Toileting, Bathing,Toilet Transfers, Shower Transfers,Activity Tolerance Progress Towards Goals Progressing Toward Goals,Slow Progress due to Pain Assessment Summary Pt having more pain today. Able to go over and practice LB dressing needs and how to incorporate her back precautions for ADL needs. Pt to go home with her when medically stable. Goals Dressing Goal Independent,Supervisor Press Room,Sock Aid Toileting Goal Independent Bathing Goal Independent Toilet Transfer Goal Independent Shower Transfer Goal Independent Patient/Caregiver Education Goal Demonstrate Post-Op Precautions Days to Meet Goals 5 Frequency of Treatment Other frequency 5x a week Treatment Plan OT Treatment Plan ADL Training,Functional Mobility,Patient/Family Education,Discharge Planning Other Treatment Recommendations and Next shower? Treatment Focus Discharge Recommendations OT Discharge Recommendations Home with / Assist Available Home Equipment Needs sock aid, long handled brush and shoe horn, BSC Transportation Needs at Discharge Private Vehicle
[2024-05-12 12:22] VITALS: BP 124/78; PULSE 97; RESP 19; TEMP 37.1; O2SAT 95
--- NOTE | 2024-05-12 13:45 | PT.IPTN ---
Current Diagnoses Spinal stenosis, lumbar region with neurogenic claudication (05/11/24) Arthrodesis status (05/11/24) Surgery Performed Operation Date: 05/11/24 07:45 Actual Procedures p L3-4 TLIF with L3-5 PSF with instrumentation-Robot - Fidel Beckham MD Physical Therapy Treatment Note M2 PT-IP Current Condition Start: 05/11/24 14:07 Freq: NEEDED Status: Active Protocol: Document 05/11/24 14:07 MB (Rec: 05/11/24 14:43 MB [id number]) Physical Therapy Current Condition Current Condition Evaluation Date 05/11/24 Treatment Diagnosis L3-5 fusion with removal of some previous hardware M3 PT-IP Subjective Start: 05/11/24 14:07 Freq: NEEDED Status: Active Protocol: Document 05/12/24 13:45 AB (Rec: 05/12/24 16:03 AB [id number]) Subjective Physical Therapy Visit Type Type Treatment Note Visit Start Time 13:45 Visit Stop Time 14:30 Number of JEWEL BLOCKER AND SAWYER Visits 0 Physical Therapy Visit Comments Patient Comments agreeable to do PT Therapy Pain Assessment Pain When Pain Assessed At Rest Pain Present Pain Present Pain Reported Location back Intensity 9 Scale Used Numeric (0 - 10) Pain Behaviors Facial Grimacing,Guarding, Holding Area,Restlessness Pain Management Techniques Apply Cold,Distraction, Modification of Treatment,Re- positioning,Timing of Activity with Medications M4 PT-IP Mobility and Gait Start: 05/11/24 14:07 Freq: NEEDED Status: Active Protocol: Document 05/12/24 13:45 AB (Rec: 05/12/24 16:03 AB [id number]) PT-Bed Mobility Assessment Rolling Type of Rolling Log Rolling Level of Assist Maximal Assistance Supine to Sit Supine to Sit Maximum Assistance,Bedrails Sit to Supine Sit to Supine Minimal Assistance,Bedrails PT-Transfer Assessment Sit to and From Stand Sit to and from Stand Moderate Assistance,1 Person Assistance,Use of Upper Extremities Equipment Transfer Assistive Device Gait Belt,Front Wheeled Walker Orthotic/Prosthetic Devices or Brace: No Comments Mobility Comments pt supine in bed. spouse in room. c/o increase back pain stated that it is more like grabbing pain/spasm. informed nurse. pt agreed to do PT. reviewed back precautions with pt and spouse. pt completed log roll bed mobility max A and max cues. educated spouse on how to assist pt. pt was able to sit on EOB CGA. c/o increase back pain. caregiver training initiated. educated spouse on how to use safety belt. spouse able to put safety belt on pt . pt completed sit to stand from EOB mod A and cues. ambulated ~ 25 ft in room using FWW mod A and cues. requested to go back to bed and with c/o increase back pain. refused to do stairs. completed sit to supine min A and cues. positioned pt in bed. call light and table placed within reach. spouse agreed to do more training tomorrow. set up at 9 am. Gait Assessment Gait Gait Assistance Required: Moderate Assistance Distance (Feet) 25 Able to Maintain Weight Bearing Status Yes During Gait Assistive Devices Assistive Device Gait Belt,Front Wheeled Walker Gait Deviations General Gait Pattern Ataxic,Decreased Stride Length ,Decreased Feet Clearance,Step -to Gait Factors Limiting Gait Function Factors Limiting Gait Function Decreased Activity Tolerance, Decreased Strength,Difficulty Following Directions,Limited Range of Motion,Pain,Poor Balance,Poor Safety Awareness M5 PT-IP Objective Assessments Start: 05/11/24 14:07 Freq: NEEDED Status: Active Protocol: Document 05/11/24 14:07 MB (Rec: 05/11/24 14:43 MB [id number]) Orientation Orientation/Cognition Level of Alertness Alert Orientation Name,Age,Birthday,Month,Date, Year,Day of Week,Place, Situation Language Function Ability Hard of Hearing Safety Awareness Decreased Safety Awareness Memory Description No Deficits Noted Gross Range of Motion Upper Extremity ROM Impairments Defer to OT Lower Extremity ROM Assessment Within Functional Limits Impairments Pt does not follow ROM and MMT cues well today and partially d/t hearing and some lethargy Strength Comments Strength Comments MMT deferred this date d/t above Coordination Assessment Gross Coordination Gross Coordination Impaired Sensation Assessment Comments Sensation Comments Pt denies paresthesias today but c/o sacral area pain with standing Muscle Tone Muscle Tone WNL Yes M6 PT-IP Treatment Start: 05/11/24 14:07 Freq: NEEDED Status: Active Protocol: Document 05/12/24 13:45 AB (Rec: 05/12/24 16:03 AB [id number]) Physical Therapy Treatment Education Education Provided Precautions,Safety M7 PT-IP Assessment and Plan Start: 05/11/24 14:07 Freq: NEEDED Status: Active Protocol: Document 05/12/24 13:45 AB (Rec: 05/12/24 16:03 AB [id number]) PT Summary Assessment and Plan Potential Rehabilitation Potential Fair Summary Impairments Pain,ROM,Strength,Balance, Coordination,Sensation,Tone, Cognition,Bed Mobility, Transfers,Gait,Activity Tolerance Progress Towards Goals Slow Progress due to Pain,Slow Progress due to Activity Tolerance Assessment Summary caregiver training conducted but will require further training. pt was not able to tolerate much activity this afternoon to complete caregiver training due to c/o increase back pain. caregiver training set up at ~ 9 am tomorrow. will continue to assess progress. Goals Bed Mobility Goal Independent Transfer Goal Independent,Front Wheeled Walker Gait Goal Independent,Front Wheel Walker Gait Distance 100 Other Goals Pt will ascend and descend 3 steps with L rail and no more than CGA to allow safe home entry. Days to Meet Goals 5 Frequency of Treatment Frequency Of Treatment Twice a Day Treatment Plan Physical Therapy Treatment Plan Bed Mobility Training,Transfer Training,Gait Training, Therapeutic Exercise,Balance Retraining,Post Op Education, Discharge Planning,Hot or Cold Pack,Neuromuscular Re-ed, Coordination Retraining,Manual Therapy Other Recommendations and Next Treatment Caregiver trainin/23 @ 9 Focus am Precautions Lumbar Precautions Log Roll,No Twisting,Limit Bending,Lifting Restriction of 10 lbs,Gait Belt above Incisional Area Recommendations To Nursing Amount of Assist Needed 1 Person Assist Discharge Recommendations PT Discharge Recommendations Home with Assistance Transportation Needs at Discharge Private Vehicle
[2024-05-12] MEDS: CYCLOBENZAPRINE 10 MG TABLET 5 MG PO (14:34)
--- NOTE | 2024-05-12 16:02 | CM.DANOTE ---
Initial DCP Assessment Note Pt is a 88 yo female, resident of [place], now POD#1 [address] spinal surgery by Dr Beckham PCP: SHIRIN Rubio Payer: MCR/[employer] Reviewed chart, met w/patient and spouse, introduced self and role. Patient lives independently with spouse and plans to return home with assist from spouse. Patient denies needs from this PAYMENT PROCESSOR, says she is hopeful the pain subsides a bit before her return home. No barriers identified at this time to patient's safe discharge home w/family to assist; close outpatient f/u recommended. CM team will plan to follow clinical course closely in case any DC needs or concerns arise. SOURAV Culver Discharge Planning/Care Management CM Discharge Assessment Start: 05/12/24 15:59 Freq: Status: Active Protocol: Document 05/12/24 16:00 SANDRO (Rec: 05/12/24 16:02 SANDRO [id number]) Discharge Planning Assessment Assigned Accounts Manager SOURAV Bower DPOA/Assigned Designee Name Gibson Lopez, spouse Contact Information [phone] Advance Directives? Yes Advance Directives on File No History Provided By Patient,Significant Other, Medical Record Prior Living Arrangements House Household Members spouse Type of transporation used prior to Drives own vehicle admit Independent with ADL's Yes Is patient alert and oriented? Yes Barriers to Discharge No Discharge Plan Home Transportation Arrangement Spouse Referrals Initiated None needed
[2024-05-12 20:25] VITALS: BP 132/74; PULSE 103
[2024-05-12] MEDS: cloNIDine 0.1 MG TABLET PO (20:25)
[2024-05-12] MEDS: SENNOSIDES 8.6 MG TABLET 17.2 MG PO (20:25)
[2024-05-12] MEDS: ZOLPIDEM 5 MG TABLET 10 MG PO (20:25)
[2024-05-12] MEDS: ATORVASTATIN 20 MG TABLET 40 MG PO (20:25)
[2024-05-12 20:35] VITALS: BP 132/74; PULSE 103; RESP 16; TEMP 36.7; O2SAT 90
[2024-05-13 01:34] VITALS: O2SAT 95
--- NOTE | 2024-05-13 06:44 | PM.PNPO.1 ---
Subjective Subjective Date Patient Seen: 05/13/24 Time Patient Seen: 06:44 Interval history: Dara very much wants to go home w/ her family, but she is having significant pain control issues. Per her MAR, she had 40mg of oxycodone yesterday and was started on cyclobenzaprine 5mg. Despite this, she continues to c/o severe LBP as well as occasional shooting leg pain. Exam Vital Signs (past 8 hours): - 05/13/24 01:34 05/13/24 01:40 Pulse Oximetry 95 Oxygen Delivery Method Nasal Cannula Oxygen Flow Rate 1 1 Fraction of Inspired Oxygen 24 Fraction of Inspired Oxygen 24 Oxygen Delivery Method Nasal Cannula Oxygen Flow Rate 1 Narrative Exam Narrative: 5/5 strength in hip flexors, quadriceps, hamstrings, DF, PF, EHL bilaterally. Sensation to light touch intact throughout BLE, calves soft and compressible. Pt is unable to move enough for me to evaluate her dressings. Objective Labs 05/12/24 05:15 PFS Medical History (Updated 05/05/24 @ 12:40 by Cailin Rinaldi RN) Cataract Spinal stenosis GERD (gastroesophageal reflux disease) Osteoporosis HLD (hyperlipidemia) Depression Arthritis Cervical spondylosis Facet arthropathy, cervical Surgical History (Updated 05/13/24 @ 07:14 by Nely Diez PA-C) History of Josephine fundoplication H/O mastectomy H/O: hysterectomy History of appendectomy S/P lumbar fusion (01/2023) Social History household members: spouse Smoking Status: Never smoker alcohol intake: current Assessment & Plan Post-op Assessment and plan (1) S/P lumbar fusion: Assessment and Plan narrative: 1) Will add dexametasone to help w/ pain control. If this is effective, she can be d/c'd w/ a medrol eduard. 2) Continue PT. 3) Continue SCDs for mechanical VTE prophylaxis. 4) Possible d/c home today w/ family if better pain control. Postoperative Procedures: Procedures Operation Date: 05/11/24 07:45 Actual Procedure Side Surgeon p L3-4 TLIF with L3-5 PSF with instrumentation-Robot Fidel Beckham MD Postoperative day: 2 Quality VTE Deep Vein Thrombosis/Pulmonary Embolism Present on Admission: No
[2024-05-13 08:00] VITALS: BP 120/60; PULSE 92; RESP 18; TEMP 37.1; O2SAT 95
[2024-05-13] MEDS: OXYCODONE IR 10 MG TABLET PO (08:18)
[2024-05-13] MEDS: CYCLOBENZAPRINE 10 MG TABLET 5 MG PO ×2 (08:18→16:22)
[2024-05-13] MEDS: CHOLECALCIFEROL (VITAMIN D3) 5,000 UNIT TABLET 5000 UNIT PO (08:19)
[2024-05-13] MEDS: CITALOPRAM 10 MG TABLET 60 MG PO (08:20)
[2024-05-13] MEDS: DOCUSATE 100 MG CAPSULE PO ×2 (08:20→21:25)
[2024-05-13] MEDS: MULTIVITAMIN 1 TABLET 1 TAB PO (08:20)
[2024-05-13] MEDS: PANTOPRAZOLE DR 40 MG TABLET PO ×2 (08:20→21:26)
[2024-05-13] MEDS: DEXAMETHASONE 4 MG/ML VIAL IV (08:20)
[2024-05-13] MEDS: buPROPion XL 150 MG TAB PO (08:20)
[2024-05-13] MEDS: CALCIUM CARBONATE 500 MG TAB PO (08:20)
[2024-05-13] MEDS: SODIUM CHLORIDE 0.9% FLUSH 10 ML IV (08:21)
--- NOTE | 2024-05-13 09:00 | PT.IPTN ---
Current Diagnoses Spinal stenosis, lumbar region with neurogenic claudication (05/11/24) Arthrodesis status (05/11/24) Surgery Performed Operation Date: 05/11/24 07:45 Actual Procedures p L3-4 TLIF with L3-5 PSF with instrumentation-Robot - Fidel Beckham MD Physical Therapy Treatment Note M2 PT-IP Current Condition Start: 05/11/24 14:07 Freq: NEEDED Status: Active Protocol: Document 05/11/24 14:07 MB (Rec: 05/11/24 14:43 MB [id number]) Physical Therapy Current Condition Current Condition Evaluation Date 05/11/24 Treatment Diagnosis L3-5 fusion with removal of some previous hardware M3 PT-IP Subjective Start: 05/11/24 14:07 Freq: NEEDED Status: Active Protocol: Document 05/13/24 09:39 TS (Rec: 05/13/24 09:54 TS [id number]) Subjective Physical Therapy Visit Type Type Treatment Note Visit Start Time 09:00 Visit Stop Time 09:35 Number of ASBESTOS BRAKE LINING FINISHER Visits 1 Physical Therapy Visit Comments Patient Comments Pt found resting in bed, reports high pain last night and she didn't have pain meds for a long time. She has some difficulty following instructions and does not seem clear this morning, perhaps due to pain meds. She states she thought she had a stroke this morning, says she doesn't feel like herself, RN was notified. Therapy Pain Assessment Pain When Pain Assessed During Mobility Pain Present Pain Present Pain Reported M4 PT-IP Mobility and Gait Start: 05/11/24 14:07 Freq: NEEDED Status: Active Protocol: Document 05/13/24 09:39 TS (Rec: 05/13/24 09:54 TS [id number]) PT-Bed Mobility Assessment Rolling Type of Rolling Log Rolling Level of Assist Moderate Assistance,1 Person Assistance Supine to Sit Supine to Sit Minimal Assistance,1 Person Assistance,Bedrails Sit to Supine Sit to Supine Moderate Assistance,1 Person Assistance PT-Transfer Assessment Sit to and From Stand Sit to and from Stand Minimal Assistance,1 Person Assistance,Use of Upper Extremities Equipment Transfer Assistive Device Gait Belt,Front Wheeled Walker Orthotic/Prosthetic Devices or Brace: No Comments Mobility Comments Pt recalls 3/3 spinal precautions, requires extra time. Logroll to R side ModA with max cues for sequencing. Supine to sit Beatriz for uprighting trunk, pt requries cues for sequencing. Spouse applies gait belt prior to STS . STS with FWW Beatriz. She ambulates in the hallway ~100 SBA/CGA/Beatriz, pt tends to drift to R side and requires cues to avoid white/objects. She performs stairs Beatriz form spouse with use of single rail and BLACK TOPPER. She ambulates back to the room. Sit to supine into bed ModA and max cues for logroll technique. Pt was left in bed, all needs met. Gait Assessment Gait Gait Assistance Required: Standby Assistance,Contact Guard Assist,Minimum Assistance Distance (Feet) 100 Able to Maintain Weight Bearing Status Yes During Gait Assistive Devices Assistive Device Gait Belt,Front Wheeled Walker Gait Deviations General Gait Pattern Ataxic,Decreased Stride Length ,Decreased Feet Clearance,Step -to Gait Factors Limiting Gait Function Factors Limiting Gait Function Decreased Activity Tolerance, Decreased Strength,Difficulty Following Directions,Limited Range of Motion,Pain,Poor Balance,Poor Safety Awareness Stair Climbing Assessment Evaluation Level of Assist On Stairs Minimal Assistance,1 Person Assistance Devices Stair Climbing Assistive Devices Left Railing Technique/Endurance Stair Climbing Direction Ascend and Descend Stair Climbing Technique Step to Step Number of Steps Climbed 3 PT-Balance Assessment Sitting Balance and Reactions Static Sitting Balance Ability Normal Dynamic Sitting Balance Ability Good Standing Balance and Reactions Static Standing Balance Ability Fair Dynamic Standing Balance Ability Fair Device Used FWW M5 PT-IP Objective Assessments Start: 05/11/24 14:07 Freq: NEEDED Status: Active Protocol: Document 05/11/24 14:07 MB (Rec: 05/11/24 14:43 MB [id number]) Orientation Orientation/Cognition Level of Alertness Alert Orientation Name,Age,Birthday,Month,Date, Year,Day of Week,Place, Situation Language Function Ability Hard of Hearing Safety Awareness Decreased Safety Awareness Memory Description No Deficits Noted Gross Range of Motion Upper Extremity ROM Impairments Defer to OT Lower Extremity ROM Assessment Within Functional Limits Impairments Pt does not follow ROM and MMT cues well today and partially d/t hearing and some lethargy Strength Comments Strength Comments MMT deferred this date d/t above Coordination Assessment Gross Coordination Gross Coordination Impaired Sensation Assessment Comments Sensation Comments Pt denies paresthesias today but c/o sacral area pain with standing Muscle Tone Muscle Tone WNL Yes M6 PT-IP Treatment Start: 05/11/24 14:07 Freq: NEEDED Status: Active Protocol: Document 05/13/24 09:39 TS (Rec: 05/13/24 09:54 TS [id number]) Physical Therapy Treatment Education Education Provided Precautions,Safety M7 PT-IP Assessment and Plan Start: 05/11/24 14:07 Freq: NEEDED Status: Active Protocol: Document 05/13/24 09:39 TS (Rec: 05/13/24 09:54 TS [id number]) PT Summary Assessment and Plan Potential Rehabilitation Potential Fair Summary Impairments Pain,ROM,Strength,Balance, Coordination,Sensation,Tone, Cognition,Bed Mobility, Transfers,Gait,Activity Tolerance Progress Towards Goals Slow Progress due to Pain,Slow Progress - Other Assessment Summary Dara is progressing with her mobility this session but is limited by pain and some slight confusion. Pt is requiring increased cues this session and has poor carryover from the day before. Spoke with nursing and pain meds perhaps are playing a role in this. She is requiring increased assist for bed mobility and increasedcues. She continues to ambulate 100' , she tends to drift into white and obj on R side, pt denies any issues with vision. She performs stairs x3 with single rail and BLACK TOPPER from spouse. Schuyler was instructed in bed mobility, STS, donnning of gait belt, gait and stairs . PT is recommending home with assist. Could benefit from HHPT. Goals Bed Mobility Goal Independent Transfer Goal Independent,Front Wheeled Walker Gait Goal Independent,Front Wheel Walker Gait Distance 100 Other Goals Pt will ascend and descend 3 steps with L rail and no more than CGA to allow safe home entry. Days to Meet Goals 5 Frequency of Treatment Frequency Of Treatment Twice a Day Treatment Plan Physical Therapy Treatment Plan Bed Mobility Training,Transfer Training,Gait Training, Therapeutic Exercise,Balance Retraining,Post Op Education, Discharge Planning,Hot or Cold Pack,Neuromuscular Re-ed, Coordination Retraining,Manual Therapy Precautions Lumbar Precautions Log Roll,No Twisting,Limit Bending,Lifting Restriction of 10 lbs,Gait Belt above Incisional Area Other Precautions Reviewed log rolling technique Recommendations To Nursing Amount of Assist Needed 1 Person Assist Discharge Recommendations PT Discharge Recommendations Home with Assistance,Home Health Transportation Needs at Discharge Private Vehicle
[2024-05-13] MEDS: OXYCODONE IR 5 MG TABLET PO ×4 (11:15→21:25)
[2024-05-13] MEDS: polyethylene glycoL 3350 17 GM POWD.PACK PO (11:17)
--- NOTE | 2024-05-13 11:28 | OT.IP.TRT ---
Current Diagnoses Spinal stenosis, lumbar region with neurogenic claudication (05/11/24) Arthrodesis status (05/11/24) Surgery Performed Operation Date: 05/11/24 07:45 Actual Procedures p L3-4 TLIF with L3-5 PSF with instrumentation-Robot - Fidel Beckham MD Occupational Therapy Treatment Note M2 OT-IP Current Condition Start: 05/11/24 14:56 Freq: Status: Active Protocol: Document 05/11/24 14:56 CGR (Rec: 05/11/24 15:06 CGR [id number]) Occupational Therapy Current Condition Current Condition Evaluation Date 05/11/24 Treatment Diagnosis L3-4 and L4-5 TLIF Diagnosis Onset Date 05/11/24 Post Operative Precautions Lumbar Precautions Log Roll,No Twisting,Limit Bending,Lifting Restriction of 10 lbs,Gait Belt above Incisional Area M3 OT- IP Subjective and Pain Start: 05/11/24 14:56 Freq: Status: Active Protocol: Document 05/13/24 11:30 [facility] (Rec: 05/13/24 11:36 [facility] [id number]) OT- Subjective Occupational Therapy Visit Type Type Treatment Note Visit Start Time 11:10 Visit Stop Time 11:28 Occupational Therapy Visit Comments Patient Comments Pt wanting to get up to brush her teeth. Pt feel that she is not thinking well. Patient/Caregiver Goals TO go home. OT Pain Assessment Pain When Pain Assessed At Rest Pain Present Pain Present Denied Pain M4 OT- IP ADL's Start: 05/11/24 14:56 Freq: Status: Active Protocol: Document 05/13/24 11:30 CCC (Rec: 05/13/24 11:36 [facility] [id number]) OT ADL-Oral Care General Eval Oral Care Ability Independent Comments Oral Care Comments Able to follow the back precautions while standing with the FWW by the sink. OT ADL-Dressing Comments OT Dressing Comments Spoke again of getting LB dressing equipment and that a hip kits may be more cost effective versus buying individual pieces. OT ADL-Bathing Comments OT Bathing Comments Pt not wanting to shower at this time. M5 OT- IP IADL's Start: 05/11/24 14:56 Freq: Status: Active Protocol: Document 05/11/24 14:56 CGR (Rec: 05/11/24 15:06 CGR [id number]) OT-Instrumental Activities of Daily Living Deficits IADL Deficits Identified No Deficits Home Safety Awareness Awareness of Need for Assistance at Home Good Awareness Ability to Problem Solve Emergency Able to Problem Solve Situations Medication Management Medication Management No Deficits Identified Money Management Money Management No Deficits Identified Meal Preparation Meal Preparation No Deficits Identified Offset Press Assistant Offset Press Assistant No Deficits Identified Driving Driving Comments Pt's spouse can drive for 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 M6 OT- IP Functional Cognition Start: 05/11/24 14:56 Freq: Status: Active Protocol: Document 05/13/24 11:30 [facility] (Rec: 05/13/24 11:36 [facility] [id number]) Cognitive Factors Limiting Selfcare Function Cognitive Ability Safety Awareness Decreased Ability to Apply Precautions Cognitive Comments Cognitive Assessment Comments Pt a bit groggy and needing increased time to states her back precautions and needing cues to follow for log rolling . M7 OT- IP Mobility and Balance Start: 05/11/24 14:56 Freq: Status: Active Protocol: Document 05/13/24 11:30 [facility] (Rec: 05/13/24 11:36 [facility] [id number]) OT- Bed Mobility Assessment Supine to Sit Supine to Sit Assist Contact Guard Assistance Sit to Supine Sit to Supine Assist Minimal Assistance OT-Transfer Assessment Sit to and From Stand Sit to and from Stand Contact Guard Assistance Transfers Transfer Ability Contact Guard Assistance Technique Transfer Destination Bed Transfer Technique Stand Step Pivot Devices Transfer Assistive Devices Gait Belt,Front Wheeled Walker Comments Mobility Comments Better today with mobility needs. OT- Balance Assessment Sitting Balance and Reactions Static Sitting Balance Ability Normal Dynamic Sitting Balance Ability Good Standing Balance and Reactions Static Standing Balance Ability Good Dynamic Standing Balance Ability Good M8 OT- IP Objective Assessments Start: 05/11/24 14:56 Freq: Status: Active Protocol: Document 05/11/24 14:56 CGR (Rec: 05/11/24 15:06 CGR [id number]) OT Gross Range of Motion Upper Extremity Range of Motion Assessment Within Functional Limits OT Strength Upper Extremity Strength Assessment Within Functional Limits Comments Strength Comments arms and hands 4/5 OT- Coordination Assessment Upper Extremity Finger to Nose Test Within Functional Limits Finger Tapping Test Within Functional Limits OT-Muscle Tone Assessment Muscle Tone WNL Yes OT Sensation Assessment Edema Edema Absent M9 OT- IP Assessment and Plan Start: 05/11/24 14:56 Freq: Status: Active Protocol: Document 05/13/24 11:30 [facility] (Rec: 05/13/24 11:36 [facility] [id number]) OT Summary Assessment and Plan Potential Rehabilitation Potential Excellent Analytic Complexity at Evaluation Moderate Summary Progress Towards Goals Progressing Toward Goals Assessment Summary Pt doing much better today however a bit groggy. Pt to go home with her to assist when medically stable. Able to go over OT needs with pt and her . Goals Dressing Goal Independent,Rn Family,Sock Aid Toileting Goal Independent Bathing Goal Independent Toilet Transfer Goal Independent Shower Transfer Goal Independent Patient/Caregiver Education Goal Demonstrate Post-Op Precautions Days to Meet Goals 4 Frequency of Treatment Other frequency 5x a week Treatment Plan OT Treatment Plan ADL Training,Functional Mobility,Patient/Family Education,Discharge Planning Discharge Recommendations OT Discharge Recommendations Home with 11/02 Assist Available Home Equipment Needs sock aid, long handled brush and shoe benjamín, BSC Transportation Needs at Discharge Private Vehicle
--- NOTE | 2024-05-13 12:50 | PT.IPTN ---
Current Diagnoses Spinal stenosis, lumbar region with neurogenic claudication (05/11/24) Arthrodesis status (05/11/24) Surgery Performed Operation Date: 05/11/24 07:45 Actual Procedures p L3-4 TLIF with L3-5 PSF with instrumentation-Robot - Fidel Beckham MD Physical Therapy Treatment Note M2 PT-IP Current Condition Start: 05/11/24 14:07 Freq: NEEDED Status: Active Protocol: Document 05/11/24 14:07 MB (Rec: 05/11/24 14:43 MB [id number]) Physical Therapy Current Condition Current Condition Evaluation Date 05/11/24 Treatment Diagnosis L3-5 fusion with removal of some previous hardware M3 PT-IP Subjective Start: 05/11/24 14:07 Freq: NEEDED Status: Active Protocol: Document 05/13/24 16:39 TS (Rec: 05/13/24 17:06 TS [id number]) Subjective Physical Therapy Visit Type Type Treatment Note Visit Start Time 12:50 Visit Stop Time 13:05 Number of CERTIFIED NURSES AIDE Visits 2 Physical Therapy Visit Comments Patient Comments Pt found resting in bed, reports feeling better this afternoon, she is agreeable to PT. Therapy Pain Assessment Pain When Pain Assessed During Mobility Pain Present Pain Present Pain Reported M4 PT-IP Mobility and Gait Start: 05/11/24 14:07 Freq: NEEDED Status: Active Protocol: Document 05/13/24 16:39 TS (Rec: 05/13/24 17:06 TS [id number]) PT-Bed Mobility Assessment Rolling Type of Rolling Log Rolling Level of Assist Minimal Assistance,1 Person Assistance Supine to Sit Supine to Sit Minimal Assistance,1 Person Assistance Sit to Supine Sit to Supine Minimal Assistance,1 Person Assistance PT-Transfer Assessment Sit to and From Stand Sit to and from Stand Contact Guard Assistance,1 Person Assistance,Use of Upper Extremities Equipment Transfer Assistive Device Gait Belt,Front Wheeled Walker Orthotic/Prosthetic Devices or Brace: No Comments Mobility Comments Pt recalls 3/3 spinal precautions. Logroll to R side Beatriz. Supine to sit Beatriz with BUE support. Pt ambulates ~ 100 to the stairs. She performs the stairs CGA with [employer]IM[employer]ORATORY HELPER and single rail. Pt ambulates back to the room, sit to supine Beatriz for LE's into bed. Pt was left in the bed, all needs met. Gait Assessment Gait Gait Assistance Required: Standby Assistance,Contact Guard Assist Distance (Feet) 100 Able to Maintain Weight Bearing Status Yes During Gait Assistive Devices Assistive Device Gait Belt,Front Wheeled Walker Gait Deviations General Gait Pattern Ataxic,Decreased Stride Length ,Decreased Feet Clearance,Step -to Gait Factors Limiting Gait Function Factors Limiting Gait Function Decreased Activity Tolerance, Decreased Strength,Difficulty Following Directions,Limited Range of Motion,Pain,Poor Balance,Poor Safety Awareness Stair Climbing Assessment Evaluation Level of Assist On Stairs Contact Guard Assistance,1 Person Assistance Devices Stair Climbing Assistive Devices Left Railing Technique/Endurance Stair Climbing Direction Ascend and Descend Stair Climbing Technique Step to Step PT-Balance Assessment Sitting Balance and Reactions Static Sitting Balance Ability Normal Dynamic Sitting Balance Ability Good Standing Balance and Reactions Static Standing Balance Ability Good Dynamic Standing Balance Ability Good Device Used FWW M5 PT-IP Objective Assessments Start: 05/11/24 14:07 Freq: NEEDED Status: Active Protocol: Document 05/11/24 14:07 MB (Rec: 05/11/24 14:43 MB [id number]) Orientation Orientation/Cognition Level of Alertness Alert Orientation Name,Age,Birthday,Month,Date, Year,Day of Week,Place, Situation Language Function Ability Hard of Hearing Safety Awareness Decreased Safety Awareness Memory Description No Deficits Noted Gross Range of Motion Upper Extremity ROM Impairments Defer to OT Lower Extremity ROM Assessment Within Functional Limits Impairments Pt does not follow ROM and MMT cues well today and partially d/t hearing and some lethargy Strength Comments Strength Comments MMT deferred this date d/t above Coordination Assessment Gross Coordination Gross Coordination Impaired Sensation Assessment Comments Sensation Comments Pt denies paresthesias today but c/o sacral area pain with standing Muscle Tone Muscle Tone WNL Yes M6 PT-IP Treatment Start: 05/11/24 14:07 Freq: NEEDED Status: Active Protocol: Document 05/13/24 16:39 TS (Rec: 05/13/24 17:06 TS [id number]) Physical Therapy Treatment Education Education Provided Precautions,Safety M7 PT-IP Assessment and Plan Start: 05/11/24 14:07 Freq: NEEDED Status: Active Protocol: Document 05/13/24 16:39 TS (Rec: 05/13/24 17:06 TS [id number]) PT Summary Assessment and Plan Potential Rehabilitation Potential Fair Summary Impairments Pain,ROM,Strength,Balance, Coordination,Sensation,Tone, Cognition,Bed Mobility, Transfers,Gait,Activity Tolerance Progress Towards Goals Progressing Toward Goals Assessment Summary Dara is making progress with her mobility. She appears more clear and less confused this afternoon. She demonstrated better carryover of logroll and bed mobility with no cues. She continues to ambualt ~100 and perform stairs x3. Goals Bed Mobility Goal Independent Transfer Goal Independent,Front Wheeled Walker Gait Goal Independent,Front Wheel Walker Gait Distance 100 Other Goals Pt will ascend and descend 3 steps with L rail and no more than CGA to allow safe home entry. Days to Meet Goals 5 Frequency of Treatment Frequency Of Treatment Twice a Day Treatment Plan Physical Therapy Treatment Plan Bed Mobility Training,Transfer Training,Gait Training, Therapeutic Exercise,Balance Retraining,Post Op Education, Discharge Planning,Hot or Cold Pack,Neuromuscular Re-ed, Coordination Retraining,Manual Therapy Precautions Lumbar Precautions Log Roll,No Twisting,Limit Bending,Lifting Restriction of 10 lbs,Gait Belt above Incisional Area Recommendations To Nursing Amount of Assist Needed 1 Person Assist Discharge Recommendations PT Discharge Recommendations Home with Assistance,Home Health Transportation Needs at Discharge Private Vehicle
[2024-05-13] MEDS: ACETAMINOPHEN 325 MG TABLET 650 MG PO (14:21)
--- NOTE | 2024-05-13 14:32 | CM.DPNOTE ---
DCP Note PARIMUTUEL CASHIER reviewed EMR. Per ortho note, pt may dc home later today pending pt's pain. Per chart, pt in a lot of pain overnight. Per PT/OT, continue to rec home with assistance. PARIMUTUEL CASHIER met with pt and spouse in room. Pt reports feeling loopy from pain meds but in less pain. Spouse concerned about pt's pain and her ability to go home today. Pt reports feeling eager to dc home. PARIMUTUEL CASHIER answered questions on where to get a bedside commode, spouse plans to get one for her. Pt/spouse deny and CM/DCP needs at this time. No barriers identified at this time to patient's safe discharge home w/family to assist; close outpatient f/u recommended. CM team will plan to follow clinical course closely in case any DC needs or concerns arise. SOURAV Orosco
[2024-05-13] MEDS: dexAMETHasone 4 MG TABLET PO ×2 (16:21→21:27)
[2024-05-13 19:00] VITALS: BP 118/54; PULSE 89; RESP 18; TEMP 36.7; O2SAT 94
[2024-05-13] MEDS: ZOLPIDEM 5 MG TABLET 10 MG PO (21:25)
[2024-05-13] MEDS: ATORVASTATIN 20 MG TABLET 40 MG PO (21:26)
[2024-05-13] MEDS: SENNOSIDES 8.6 MG TABLET 17.2 MG PO (21:26)
[2024-05-13 21:27] VITALS: BP 118/54; PULSE 89
[2024-05-13] MEDS: cloNIDine 0.1 MG TABLET PO (21:27)
[2024-05-14] MEDS: CYCLOBENZAPRINE 10 MG TABLET 5 MG PO ×2 (01:19→09:38)
[2024-05-14] MEDS: OXYCODONE IR 5 MG TABLET PO ×2 (04:00→09:37)
[2024-05-14] MEDS: dexAMETHasone 4 MG TABLET PO (04:00)
--- NOTE | 2024-05-14 07:17 | P.DS_ITS ---
History of Present Illness History of Present Illness Date Patient Seen: 05/14/24 Time Patient Seen: 07:18 Chief complaint: INPT Narrative: Operative Date/Time/Diagnoses Date of procedure: 05/11/24 Time of procedure: 07:40 Pre-op diagnosis: 1. 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 L3-4 foraminal stenosis 3. History of L4-5 fusion with instrumentation Post-op diagnosis: same Procedure & Clinicians Procedure: 1. L3-4 posterolateral and posterior interbody fusion 2. L3-4 posterior interbody cage placement 3. L4-5 posterior non-segmental instrumentation removal 4. L4-5 revision laminectomy with exploration of fusion 5. L3-4 posterior non-segmental instrumentation with pedicle screw placement 6. L4-5 posterolatearl fusion 7. Clayton of bone marrow from iliac crest through a separate incision 8. Utilization of microsurgical technique and operating microscope 9. Utilization of robotic assisted navigation Same procedure as scheduled: Yes Indications: Patient has been having chronic back pain and worsening lumbar radiculopathy and symptoms of neurogenic claudication. Patient was found to have significant L3-4 spinal stenosis with history of L4-5 fusion correlating with her exam findings and symptoms. Patient failed multiple conservative management with worsening pain weakness and numbness in her lower extremity. Patient has been having difficulty performing activity of daily living. After discussing risks benefits of treatment options, patient elected proceed with surgery. Surgeon: Fidel Beckham Social Science Research Assistant: Nely Diez Operative Notes Closure Type: primary Specimen(s): none sent Prosthetic devices, grafts, tissues, transplants, or devices: Globus CREO MIS screws, Rise cage Applied: catheter Estimated Blood Loss (mL): 100 Blood products transfused: none Discharge Providers Provider Date of admission: 05/11/24 06:01 Discharge Date: 05/14/24 Primary care physician: Agustina Jacob PA-C Consults: 05/11/24 13:09 Consult to Occupational Therapy Evaluate & Treat Comment: Physician Instructions: Evaluate and treat Consult to Physical Therapy Evaluate & Treat Comment: Physician Instructions: Evaluate and Treat Discharge provider: Nely Diez PA-C Summary Hospital Course Discharge Diagnosis: L3-4 spinal stenosis with neurogenic claudication, L3-4 foraminal stenosis, History of L4-5 fusion with instrumentation; L3-4 fusion w/ L3-4 posterior instrumentation Hospital Course: Ms Lopez's hospital course was remarkable for poor pain control. She was started on steroids on POD# 2, which seemed to help. On the morning of POD# 3, she was feeling much better. She was eating and voiding without difficulty and her pain was well-controlled with oral medication. She was evaluated by PT and felt to be appropriate for discharge w/ her family. Exam Vital Signs (past 8 hours): Fraction of Inspired Oxygen 21 Oxygen Delivery Method Room Air Oxygen Flow Rate 0 Narrative Exam Narrative: 5/5 strength in hip flexors, quadriceps, hamstrings, PF, DF, EHL bilaterally. Sensation to light touch intact throughout BLE. Calves soft and compressible. Dressings placed intraoperatively are CDI. Objective Labs 05/12/24 05:15 [facility] Medical History (Updated 05/05/24 @ 12:40 by Cailin Rinaldi RN) Cataract Spinal stenosis GERD (gastroesophageal reflux disease) Osteoporosis HLD (hyperlipidemia) Depression Arthritis Cervical spondylosis Facet arthropathy, cervical Surgical History (Updated 05/13/24 @ 07:14 by Nely Diez PA-C) History of Josephine fundoplication H/O mastectomy H/O: hysterectomy History of appendectomy S/P lumbar fusion (01/2023) Social History household members: spouse Smoking Status: Never smoker alcohol intake: current Discharge Assessment & Plan Assessment and Plan Assessment: L3-4 spinal stenosis with neurogenic claudication, L3-4 foraminal stenosis, History of L4-5 fusion with instrumentation; L3-4 fusion w/ L3-4 posterior instrumentation Plan of Treatment: Discharge home, multimodal pain control, walking for VTE prophylaxis, f/u in office in 2 weeks. Discharge Plan Discharge Plan Patient Disposition: Home Discharge orders & Medications Prescriptions: New oxycodone 5 mg Tablet 5 mg PO Q6HR PRN (Reason: pain (scale score 4-6)) Qty: 30 0RF acetaminophen 325 mg Tablet 650 mg PO Q6H PRN (Reason: Fever/Mild Pain (1-3)) Qty: 240 0RF cyclobenzaprine 10 mg Tablet 5 mg PO Q8HR PRN (Reason: Pain, Moderate (4-6)) Qty: 20 0RF ondansetron 4 mg Tablet,Disintegrating 4 mg sublingual Q6HR PRN (Reason: nausea and vomiting) Qty: 30 0RF polyethylene glycol 3350 17 gram Powder In Packet 17 g PO DAILY PRN (Reason: Constipation) Qty: 100 0RF Continued temazepam 15 mg Capsule 15 mg PO BEDTIME PRN (Reason: Insomnia) alendronate 70 mg tablet 70 mg PO QWEEK atorvastatin 40 mg tablet 40 mg PO BEDTIME bupropion HCl 150 mg tablet extended release 24 hr 150 mg PO QAM citalopram 20 mg tablet 60 mg PO DAILY clonidine HCl 0.1 mg tablet 0.1 mg PO BEDTIME pantoprazole 40 mg tablet,delayed release (DR/EC) 40 mg PO BID sumatriptan succinate 100 mg tablet 100 mg PO PRN PRN (Reason: migranes.) glucosamine HCl 1,500 mg tablet 1,500 mg PO DAILY Rx Instructions: administer with a meal cholecalciferol (vitamin D3) 125 mcg (5,000 unit) capsule 125 mcg PO DAILY multivitamin Tablet 1 tab PO DAILY calcium carbonate 600 mg calcium (1,500 mg) tablet 600 mg PO DAILY Discontinued meloxicam 15 mg tablet See Rx Instructions .ROUTE .COMPLEX Qty: 90 1RF Dose Instruction: TAKE 1 TABLET BY MOUTH DAILY Rx Instructions: TAKE 1 TABLET BY MOUTH DAILY Follow up/Referrals: Agustina Jacob PA-C [Primary Care Provider] - Fidel Beckham MD [Physician] - 2 Weeks () Diet/Activity/Treatments Diet: Diet as Tolerated Activity: No deep bending or twisting at the waist. No lifting more than 10 pounds. Skin/Wound/Dressing Care Report to your healthcare provider any signs of infection, such as:: chills, fever, night sweats, unusual drainage and unusual redness Dressing: May shower. Keep dressing as dry as possible. If dressing becomes wet or dirty, may remove and replace with clean, dry gauze. No bathing or otherwise soaking incisions. Do not apply any creams, lotions, or ointments to incisions. Visit Report/Discharge Packet Instructions: DI for Prescription Opioid Use, DI for Transforaminal Lumbar Interbody Fusion Stand Alone Forms: Patient Portal/API, Stroke Signs & Symptoms, Surgery Discharge Discharge Data Primary Care Provider: Agustina Jacob VTE Deep Vein Thrombosis/Pulmonary Embolism Present on Admission: No
[2024-05-14 08:00] VITALS: BP 110/52; PULSE 84; RESP 16; TEMP 36.4; O2SAT 91
[2024-05-14] MEDS: buPROPion XL 150 MG TAB PO (09:32)
[2024-05-14] MEDS: CALCIUM CARBONATE 500 MG TAB PO (09:32)
[2024-05-14] MEDS: CHOLECALCIFEROL (VITAMIN D3) 5,000 UNIT TABLET 5000 UNIT PO (09:33)
[2024-05-14] MEDS: DOCUSATE 100 MG CAPSULE PO (09:34)
[2024-05-14] MEDS: CITALOPRAM 10 MG TABLET 60 MG PO (09:34)
[2024-05-14] MEDS: MULTIVITAMIN 1 TABLET 1 TAB PO (09:34)
[2024-05-14] MEDS: PANTOPRAZOLE DR 40 MG TABLET PO (09:35)
[2024-05-14] MEDS: ACETAMINOPHEN 325 MG TABLET 650 MG PO (09:36)
[2024-05-14] MEDS: polyethylene glycoL 3350 17 GM POWD.PACK PO (09:38)
--- NOTE | 2024-05-14 10:28 | PC.NURSE ---
Day shift: Discharge instructions gone over with patient and patient's spouse. Patient stated that pain medications and muscle relaxer made her feel a little whoozy. Education given on opiods and medications. Patient stated understanding, all questions answered. No PIV access. All belongings with patient. PCT Denis escorted patient to exit via wheelchair. Back dressing changed prior to discharge.
== END 2024-05-14 10:00 | disposition home or self-care (01) | DRG 428 ==
PROVIDERS: Admitting Provider Orthopaedic Surgery Orthopaedic Surgery of the Spine; PCP Physician Assistant; Referring Provider Orthopaedic Surgery Orthopaedic Surgery of the Spine; Visit Provider Orthopaedic Surgery Orthopaedic Surgery of the Spine
PROC: 0SG00AJ Fusion of Lumbar Vertebral Joint with Interbody Fusion Device, Posterior Approach, Anterior Column, Open Approach (ICD-10-PCS; principal; 2024-05-11 07:45)
DX: M48.062 Spinal stenosis, lumbar region with neurogenic claudication (principal); I49.3 Ventricular premature depolarization; M54.16 Radiculopathy, lumbar region; M96.1 Postlaminectomy syndrome, not elsewhere classified; G89.18 Other acute postprocedural pain; E78.5 Hyperlipidemia, unspecified; M81.0 Age-related osteoporosis without current pathological fracture; F32.A Depression, unspecified; K21.9 Gastro-esophageal reflux disease without esophagitis; Z98.1 Arthrodesis status
CPT/HCPCS: 36415; 72100; 76000; 85014; 85018; 94762; 97116; 97161; 97166; 97530; 97535; C1713; C9290; J0171; J0690; J1100; J1171; J2405; J2704; J3010